=== PATIENT | male | born 1970 | race Caucasian/White ===

== ENCOUNTER 2021-01-04 06:18 | Day surgery (SDC) | payer BC ==
[2021-01-02 10:35] VITALS: BMI 27.2
[~2021-01-04 06:18] MED LIST: BUPIVACAINE HCL/PF 0.5% (5 MG/ML) 30 ML VIAL IJ ONE; LIDOCAINE HCL 1%, 10 MG/ML (20ML VIAL) PNB ONE
[2021-01-04] MEDS ORDERED: MIDAZOLAM HCL 2 MG/2 ML SINGLE DOSE VIAL ONE (07:44)
[2021-01-04] MEDS ORDERED: PROPOFOL 20 ML ONE (07:44)
[2021-01-04] MEDS ORDERED: GLYCOPYRROLATE 0.2 MG/1 ML VIAL ONE (07:49)
[2021-01-04] MEDS ORDERED: SODIUM CHLORIDE 0.9% P/F 10 ML VIAL IJ ONE (07:49)
[2021-01-04] MEDS ORDERED: LIDOCAINE HCL/PF 2% SDV 5ML VIAL ONE (07:49)
[2021-01-04] MEDS ORDERED: ceFAZolin SODIUM 1 GM VIAL ONE (07:49)
[2021-01-04] MEDS ORDERED: KETOROLAC TROMETHAMINE 30 MG/1 ML VIAL ONE (08:14)
[2021-01-04] MEDS ORDERED: ONDANSETRON 4 MG/2 ML VIAL ONE (08:14)
[2021-01-04] MEDS ORDERED: LIDOCAINE HCL 1%, 10 MG/ML (20ML VIAL) PNB ONE (08:21)
[2021-01-04] MEDS ORDERED: BUPIVACAINE HCL/PF 0.5% (5 MG/ML) 30 ML VIAL IJ ONE (08:21)
[2021-01-04] MEDS ORDERED: PROMETHAZINE HCL 25 MG/1 ML VIAL IVPUSH PRN (09:27)
[2021-01-04] MEDS ORDERED: oxyCODONE HCL 5 MG TABLET PO PRN (09:27)
[2021-01-04] MEDS ORDERED: ONDANSETRON 4 MG/2 ML VIAL IVPUSH PRN (09:27)
[2021-01-04] MEDS ORDERED: LACTATED RINGERS SOLUTION 1,000 ML IV SCH (09:30)
[2021-01-04 10:10] VITALS: TEMP 97.7
[2021-01-04 11:01] VITALS: BP 132/74; PULSE 72
== END 2021-01-04 11:19 | disposition home or self-care (01) ==
LOC: FASU 06:18
PROVIDERS: ATTEND Orthopaedic Surgery
PROC: 0JNK0ZZ Release Left Hand Subcutaneous Tissue and Fascia, Open Approach (ICD-10-PCS; principal; 2021-01-04 08:00)
DX: M72.0 Palmar fascial fibromatosis [Dupuytren] (principal)
CPT/HCPCS: 82962; 88304-TC; 94760

== ENCOUNTER 2021-12-05 04:46 | Day surgery (SDC) | payer BC ==
[2021-12-05] MEDS ORDERED: KETAMINE HCL 200 MG/20 ML VIAL ONE (07:05)
[2021-12-05 08:32] VITALS: TEMP 97.3
[2021-12-05 09:00] VITALS: BP 141/62; PULSE 66
== END 2021-12-05 09:10 | disposition home or self-care (01) ==
LOC: JASU-ENDO 04:46
PROVIDERS: ATTEND Internal Medicine Gastroenterology
PROC: 0DBH8ZX Excision of Cecum, Via Natural or Artificial Opening Endoscopic, Diagnostic (ICD-10-PCS; 2021-12-05)
PROC: 0DBL8ZX Excision of Transverse Colon, Via Natural or Artificial Opening Endoscopic, Diagnostic (ICD-10-PCS; principal; 2021-12-05 08:00)
DX: Z12.11 Encounter for screening for malignant neoplasm of colon (principal); D12.0 Benign neoplasm of cecum; D12.3 Benign neoplasm of transverse colon; E11.9 Type 2 diabetes mellitus without complications; I10 Essential (primary) hypertension
CPT/HCPCS: 82962; 88305-TC

== ENCOUNTER 2024-05-20 04:52 | Day surgery (SDC) | payer BC ==
[2024-05-12 11:12] VITALS: BMI 26.5
[2024-05-20] MEDS ORDERED: LIDOCAINE VISCOUS 2% ORAL/TOP 15 ML UNIT-DOSE CUP ONE (08:03)
[2024-05-20 09:03] VITALS: BP 136/63; PULSE 72; RESP 16; TEMP 98.6
== END 2024-05-20 09:04 | disposition home or self-care (01) ==
LOC: JASU-ENDO 04:52
PROVIDERS: ATTEND Internal Medicine Gastroenterology
PROC: 0DB78ZX Excision of Stomach, Pylorus, Via Natural or Artificial Opening Endoscopic, Diagnostic (ICD-10-PCS; 2024-05-20)
PROC: 0DB68ZX Excision of Stomach, Via Natural or Artificial Opening Endoscopic, Diagnostic (ICD-10-PCS; principal; 2024-05-20 08:00)
DX: R11.0 Nausea (principal)
CPT/HCPCS: 88305-TC; 88342-TC

== ENCOUNTER 2024-12-22 06:46 | Day surgery (SDC) | payer BC ==
[2024-12-07 16:23] VITALS: BMI 25.2
[2024-12-22] MEDS ORDERED: INSULIN GLARGINE (LANTUS) 100 UNITS/ML UNITS SQ ONE (09:36)
[2024-12-22] MEDS: INSULIN GLARGINE (LANTUS) 100 UNITS/ML UNITS SQ STA (09:54)
[2024-12-22 10:02] VITALS: TEMP 97.6
[2024-12-22 10:04] VITALS: RESP 18
[2024-12-22 10:43] VITALS: BP 151/68; PULSE 66
== END 2024-12-22 10:44 | disposition home or self-care (01) ==
LOC: JASU-ENDO 06:46
PROVIDERS: ATTEND Internal Medicine Gastroenterology
PROC: 0DJD8ZZ Inspection of Lower Intestinal Tract, Via Natural or Artificial Opening Endoscopic (ICD-10-PCS; principal; 2024-12-22 08:00)
DX: Z12.11 Encounter for screening for malignant neoplasm of colon (principal); K64.8 Other hemorrhoids; Z86.0100 Personal history of colon polyps, unspecified
CPT/HCPCS: 82962